=== PATIENT | female | born 1950 | race Caucasian/White ===

== ENCOUNTER → 2018-11-07 | Outpatient (CLI) | payer BC ==
[~2018-11-07] MED LIST: FENOFIBRATE160 MG PO; SIMVASTATIN40 MG PO
== END ==
LOC: M.RAD 15:38
DX: M81.0 Age-related osteoporosis without current pathological fracture (principal); M85.88 Other specified disorders of bone density and structure, other site; Z79.891 Long term (current) use of opiate analgesic

== ENCOUNTER → 2020-07-14 | Outpatient (CLI) | payer BC | LOC: M.RAD 12:36 | PROVIDERS: ATTEND Family Medicine | DX: Z12.31 Encounter for screening mammogram for malignant neoplasm of breast (principal) ==

== ENCOUNTER → 2020-07-21 | Outpatient (CLI) | payer BC | LOC: M.RAD 07-19 11:39 | PROVIDERS: ATTEND Family Medicine | DX: N63.20 Unspecified lump in the left breast, unspecified quadrant (principal); R92.2 Inconclusive mammogram; R92.8 Other abnormal and inconclusive findings on diagnostic imaging of breast ==